=== PATIENT | female | born 1950 | race Caucasian/White ===

== ENCOUNTER → 2016-12-22 | Outpatient (CLI) | payer MEDICARE, OTHER ==
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
== END | disposition home or self-care (01) ==
LOC: SMRI 10:26
DX: M19.072 Primary osteoarthritis, left ankle and foot (principal); S82.892A Other fracture of left lower leg, initial encounter for closed fracture; M24.272 Disorder of ligament, left ankle; Z98.890 Other specified postprocedural states
CPT/HCPCS: 73721